=== PATIENT | male | born 1950 | race Caucasian/White ===

== ENCOUNTER 2019-01-10 09:53 | Outpatient (CLI) | payer OTHER, SELFPAY ==
[2019-01-10 11:18] LABS: CREATININE 0.77 mg/dL (0.70-1.30); Cholesterol 178 mg/dL (50-200); Glucose 94 mg/dL (70-100); HDL Cholesterol 65 mg/dL (40-60); LDL CHOLESTEROL 88 mg/dL (<100); Potassium 4.5 mmol/L (3.5-5.1); Triglyceride 69 mg/dL (30-150)
== END 2019-01-10 10:13 ==
PROVIDERS: PCP General Practice; Visit Provider General Practice
DX: Z00.00 Encounter for general adult medical examination without abnormal findings (principal); I10 Essential (primary) hypertension
CPT/HCPCS: 36415; 80061; 82947; 83721; 82565; 84132

== ENCOUNTER 2020-04-18 07:27 | Emergency (ER) | payer OTHER, SELFPAY ==
[2020-04-18 07:30] VITALS: BP 173/101; PULSE 95; TEMP 36.7; O2SAT 97
--- NOTE | 2020-04-18 08:04 | DI.RAD_ITS ---
EXAM: XR ANKLE LT COMPLETE CLINICAL HISTORY: pain TECHNIQUE: 2D digital imaging was performed. COMPARISON: No exams were available for comparison FINDINGS: There is soft tissue swelling beneath the malleoli. No fracture or ankle mortise widening is seen. There is no talar dome defect. Spurring is noted at the Achilles insertion on the calcaneus. IMPRESSION: Soft tissue swelling. No acute abnormality.
--- NOTE | 2020-04-18 08:05 | DI.RAD_ITS ---
EXAM: XR FOOT LT COMPLETE CLINICAL HISTORY: pain. TECHNIQUE: 2D digital imaging was performed. COMPARISON: No exams were available for comparison FINDINGS: BONES: No acute fracture is present. No bony destructive lesion is seen. There is spurring at the Ach illes insertion on the calcaneus. JOINTS: No dislocation present. SOFT TISSUE: Normal. IMPRESSION: Unremarkable radiographs of the left foot. DATA REPOSITORY: RADIATION DOSE DELIVERED:
--- NOTE | 2020-04-18 08:12 | DI.VRAD_ITS ---
PROCEDURE INFORMATION: Exam: XR Left Foot Complete Exam date and time: 04/18/2020 7:54 AM Age: 70 years old Clinical indication: Left; Patient HX: Pain/swelling. Dropped wood on foot TECHNIQUE: Imaging protocol: XR Left foot. Views: 3 or more views. COMPARISON: No relevant prior studies available. FINDINGS: Bones/joints: Normal. Soft tissues: Normal. IMPRESSION: No acute findings. Dictated and Authenticated by: Erasto Patel MD. Ordering:JOSÉ ANTONIO Brennan MD
--- NOTE | 2020-04-18 08:12 | DI.VRAD_ITS ---
PROCEDURE INFORMATION: Exam: XR Left Ankle Exam date and time: 04/18/2020 7:54 AM Age: 70 years old Clinical indication: Left; Patient HX: Pain/dropped wood on foot 1 week ago. Swelling at ankle TECHNIQUE: Imaging protocol: XR Left ankle. Views: 3 or more views. COMPARISON: No relevant prior studies available. FINDINGS: Bones/joints: Normal. Soft tissues: Medial soft tissue swelling. MRI could be performed for further evaluation to assess soft tissue injury IMPRESSION: Medial soft tissue swelling. Dictated and Authenticated by: Erasto Patel MD. Ordering:JOSÉ ANTONIO Brennan MD
--- NOTE | 2020-04-18 08:18 | W.ED.GENAD ---
Discharge Plan Disposition Patient Disposition: HOME Condition: Improving Discharge Details Chief Complaint: Orthopedic Clinical Impression: Acute gout of left foot Primary Care Provider: Jesus Mckinley ED Provider: Nate Delacruz Home Meds and New Rx's Prescriptions: New prednisone 20 mg tablet 40 mg PO DAILY 5 Days Qty: 10 RF: 0 Continued lisinopril 2.5 MG tablet 5 mg PO DAILY RF: 0 Discharge Instructions Instructions: Gout (ED) Additional Instructions: Please take prednisone as prescribed. Please take the colchicine today and tomorrow. May use a small amount of ibuprofen 400 mg twice daily if needed for pain. May also use Tylenol as needed for pain. Return for worsening discomfort, development of a fever, or any other acute concerns. Medical Decision Making 70-year-old male presents from home complaining of days of the left foot pain both at the medial malleolus and left great toe base. Similar to previous episodes of gout. He will note that he had a blunt trauma from dropping a piece of wood on the left foot dorsum in a heavy work shoe. He states that this did seem to get better. Patient is otherwise well. He takes 5 mg lisinopril and historically has had normal renal function. Today's x-rays are unremarkable for bony findings. I do feel this is consistent with gout. I will place him on 2 days of colchicine as well as a small burst of prednisone. He understands follow-up/return precautions. HPI General Mode of arrival: ambulatory. Date/Time Provider Initiated Documentation: 04/18/20 07:30. Limitations to Documentation: no limitations. Information obtained by: patient. History of Present Illness 70 year old M presents to the emergency department with the chief complaint of Left foot pain, described as moderate and similar to prior episodes, Quality is described as dull and constant, and is localized to the left and lower extremity. Patient reports no radiation. Patient started experiencing this day(s) and it has been constant. Rest improves symptom(s), Other factors that worsen symptoms (Weightbearing) . Patient notes denies fever/chills. Patient did receive the following treatments prior to arrival, Aspirin Related Data Home Medications Medication Instructions Recorded Confirmed lisinopril 5 mg PO DAILY 07/15/16 04/18/20 prednisone 40 mg PO DAILY 5 Days #10 tab 04/18/20 Previous Rx's Medication Instructions Recorded prednisone 40 mg PO DAILY 5 Days #10 tab 04/18/20 Allergies Allergy/AdvReac Type Severity Reaction Status Date / Time venom-honey bee Allergy Severe Hives Unverified 04/18/20 07:34 [bee venom (honey bee)] General Stated Complaint: Orthopedic APARNA: 3 Review of Systems Narrative: No fever. Has otherwise been well. [facility] Social History Smoking/Tobacco Use Status: Never Alcohol Intake: current Alcohol Intake frequency: a few times a week Alcohol type: beer Drug use: Never Substance use type: does not use Do you feel safe at home: Yes Do you feel safe in your relationship?: Yes Exam Narrative Exam Narrative: GEN: awake, alert, oriented 3. Pleasant, well groomed, interactive. HEAD: Normocephalic, atraumatic ENT: Mucous membranes moist, oropharynx unremarkable, External ear exam unremarkable EYES: PERRL, EOMI NECK: Full ROM, no SIMON, no menigismus CHEST/RESP: Nontender, clear to auscultation bilateral, no wheeze/rhonchi/rales CARDIOVASCULAR: RRR, no murmur, rub jay. 2+ Rad pulse bilateral ABDOMEN: Soft, nontender, no mass. +Bowel sounds EXT: Full ROM but limited by pain left. Left medial malleoli are and base of great toe erythema and tenderness to touch. Neuro: Grossly normal neurologic exam, conversant, interactive. Psych: Speech fluent, thoughts congruent, affect normal Course Vital Signs Vital signs: Vital Signs Temperature 36.7 C 04/18/20 07:30 Pulse 95 H 04/18/20 07:30 Blood Pressure 173/101 H 04/18/20 07:30 Pulse Oximetry 97 04/18/20 07:30 Temperature 36.7 C 04/18/20 07:30 Temperature Source Temporal Artery Scan 04/18/20 07:30 Pulse 95 H 04/18/20 07:30 Respiratory Effort Non-Labored 04/18/20 07:32 Blood Pressure 173/101 H 04/18/20 07:30 Blood Pressure Position Sitting 04/18/20 07:30 Pulse Oximetry 97 04/18/20 07:30 Oxygen Delivery Method Room Air 04/18/20 07:30 Oxygen Flow Rate 0 04/18/20 07:30 Pain Level 9 04/18/20 07:36
[2020-04-18] MEDS: predniSONE 20 MG TAB 60 MG PO (09:06)
[2020-04-18] MEDS: Colchicine 0.6 MG TAB PO (09:06)
[2020-04-18 09:07] VITALS: BP 149/90; PULSE 64; RESP 18; TEMP 36.7; O2SAT 98
== END 2020-04-18 09:13 | disposition home or self-care (01) ==
PROVIDERS: Emergency Provider Emergency Medicine; PCP General Practice
DX: S99.922A Unspecified injury of left foot, initial encounter (principal); W20.8XXA Other cause of strike by thrown, projected or falling object, initial encounter; M10.9 Gout, unspecified; I10 Essential (primary) hypertension
CPT/HCPCS: 99284; 73610; 73630; 99283; J7512

== ENCOUNTER 2021-02-14 12:54 | Outpatient (REF) | payer OTHER, SELFPAY ==
[2021-02-15 15:42] LABS: COVID-19 RT-PCR UVMMC Result Negative (Negative)
== END 2021-02-14 12:55 | disposition home or self-care (01) ==
LOC: NCHCN 12:54
PROVIDERS: PCP General Practice; Visit Provider Nurse Practitioner Family
DX: Z20.822 Contact with and (suspected) exposure to COVID-19 (principal); R05 Cough
CPT/HCPCS: U0003

== ENCOUNTER 2021-05-03 09:03 | Outpatient (REF) | payer OTHER, SELFPAY ==
[2021-05-03 20:48] LABS: Anion Gap 9.8 mmol/L (3-11); BUN 23 mg/dL (7-18); CO2 24.2 mmol/L (21.0-32.0); CREATININE 0.7 mg/dL (0.70-1.30); Calcium 9.2 mg/dL (8.5-10.1); Chloride 105 mmol/L (98-107); Glucose 97 mg/dL (74-106); Potassium 4.4 mmol/L (3.5-5.1); Sodium 139 mmol/L (136-145)
== END 2021-05-03 09:04 | disposition home or self-care (01) ==
LOC: NCHCN 09:03
PROVIDERS: PCP General Practice; Visit Provider Physician Assistant
DX: I10 Essential (primary) hypertension (principal)
CPT/HCPCS: 80048

== ENCOUNTER 2021-08-02 18:19 | Outpatient (REF) | payer OTHER, SELFPAY ==
[2021-08-02 18:03] LABS: Bilirubin Negative (Negative); Blood Negative (Negative); Clarity Clear (Clear); Glucose Negative (Negative); Ketones Negative (Negative); Leukocyte Esterase Negative (Negative); Nitrite Negative (Negative); Urobilinogen 0.2 EU/dL (Up TO 0.2); pH 5.5 (5-8)
== END 2021-08-02 18:20 | disposition home or self-care (01) ==
LOC: NCHCN 18:19
PROVIDERS: PCP General Practice; Visit Provider Physician Assistant
DX: R35.0 Frequency of micturition (principal)
CPT/HCPCS: 81003

== ENCOUNTER 2021-09-09 12:21 | Outpatient (REF) | payer MEDICARE, SELFPAY ==
[2021-09-09 11:37] LABS: Mononuclear Cells 3 %; Polynuclear Cells 97 %
== END 2021-09-09 12:22 | disposition home or self-care (01) ==
LOC: NCHCN 12:21
PROVIDERS: PCP General Practice; Visit Provider Physician Assistant
DX: M70.22 Olecranon bursitis, left elbow (principal)
CPT/HCPCS: 89051; 87070; 87205

== ENCOUNTER 2023-06-08 09:38 | Outpatient (REF) | payer MEDICARE, SELFPAY ==
[2023-06-08 16:13] LABS: HCT 45.5 % (40.0-50.0); HGB 16.3 g/dL (13.5-17.5); MCH 32.4 pg (27.0-33.0); MCHC 35.8 % (32.0-36.0); MCV 91 fL (80-95); MPV 10.5 fL (8.0-11.0); Platelet Count 235 10^3/uL (130-400); RBC 5.03 10^6/uL (4.36-5.78); RDW 13.1 % (11.8-14.1); RDW-SD 43.1 fL; WBC 4.36 10^3/uL (4.4-10.8)
[2023-06-08 17:22] LABS: ALT 43 U/L (16-63); AST 21 U/L (15-37); Alkaline Phosphatase 83 U/L (46-116); Anion Gap 11.3 mmol/L (3-11); BUN 20 mg/dL (7-18); Bilirubin, Total 0.8 mg/dL (0.2-1.0); CO2 23.7 mmol/L (21.0-32.0); CREATININE 0.7 mg/dL (0.70-1.30); Calcium 9.3 mg/dL (8.5-10.1); Calculated LDL 102 mg/dL (<100); Chloride 103 mmol/L (98-107); Cholesterol 188 mg/dL (<200); Estimated GFR 96.69 (mL/min/1.73m2); Glucose 102 mg/dL (74-106); HDL Cholesterol 56 mg/dL (40-60); Potassium 4.1 mmol/L (3.5-5.1); Sodium 138 mmol/L (136-145); Total Protein 7.1 g/dL (6.4-8.2); Triglyceride 150 mg/dL (<150)
[2023-06-08 17:31] LABS: Uric Acid 9.7 mg/dL (3.5-7.2)
[2023-06-08 22:30] LABS: PSA, Screening 5.5 ng/mL (<=6.5)
== END 2023-06-08 09:39 | disposition home or self-care (01) ==
LOC: NCHCN 09:38
PROVIDERS: PCP General Practice; Visit Provider Physician Assistant
DX: M10.9 Gout, unspecified (principal); I10 Essential (primary) hypertension; Z12.5 Encounter for screening for malignant neoplasm of prostate; R79.89 Other specified abnormal findings of blood chemistry
CPT/HCPCS: 80053; 80061; 84153; 85027; 84550

== ENCOUNTER 2024-06-09 12:20 | Outpatient (REF) | payer MEDICARE, SELFPAY ==
[2024-06-09 16:15] LABS: Anion Gap 10.7 mmol/L (3-11); BUN 14 mg/dL (7-18); CO2 24.3 mmol/L (21.0-32.0); CREATININE 0.8 mg/dL (0.70-1.30); Calcium 9.4 mg/dL (8.5-10.1); Chloride 104 mmol/L (98-107); Estimated GFR 92.29 (mL/min/1.73m2); Glucose 84 mg/dL (74-106); Sodium 139 mmol/L (136-145)
[2024-06-10 19:27] LABS: PSA, Screening 7.9 ng/mL (<=6.5)
== END 2024-06-09 12:21 | disposition home or self-care (01) ==
LOC: NCHCN 12:20
PROVIDERS: PCP General Practice; Visit Provider Physician Assistant
DX: Z12.5 Encounter for screening for malignant neoplasm of prostate (principal)
CPT/HCPCS: 80048; 84153

== ENCOUNTER 2024-10-20 10:30 | Emergency (ER) | payer MEDICARE, SELFPAY ==
[2024-10-20 10:42] VITALS: BP 165/111; PULSE 101; RESP 16; TEMP 36.5; O2SAT 96
[2024-10-20 10:55] VITALS: TEMP 36.5
[2024-10-20 11:48] VITALS: BP 146/96; PULSE 72; RESP 16; O2SAT 98
[2024-10-20] MEDS: Albuterol HFA 8 GM 60 PUFF INH IH (11:49)
[2024-10-20] MEDS: Inhaler, Assist Device 1 EACH MC (11:49)
[2024-10-20 11:59] LABS: Influenza A PCR Negative (Negative); Influenza B PCR Negative (Negative); RSV PCR Negative (Negative)
[2024-10-20 12:02] LABS: COVID-19 PCR Positive (Negative); Source Nasopharynx
--- NOTE | 2024-10-20 12:10 | DI.RAD_ITS ---
Exam(s) XR CHEST 2V PA LATERAL EXAM: XR CHEST 2V PA LATERAL CLINICAL HISTORY: shortness of breath, cough TECHNIQUE: 2D digital imaging was performed of the chest. Two images were obtained. PA and lateral views were obtained. COMPARISON: CR CHEST 2 VIEWS PA,LAT from 08/21/2016 FINDINGS: MEDIASTINUM: Normal. HEART: Normal. PULMONARY VASCULATURE: Normal. LUNGS: Clear. PLEURAL SPACE: No pleural effusion or pneumothorax. BONE:Within normal limits for the patient's age. OTHER FINDINGS:Normal. IMPRESSION: No acute pulmonary findings. DATA REPOSITORY: RADIATION DOSE DELIVERED:
--- NOTE | 2024-10-20 12:38 | W.ED.GENAD ---
Discharge Plan Disposition Patient Disposition: Home Condition: Stable Discharge Details Clinical Impression: COVID-19 Primary Care Provider: Jesus Mckinley ED Provider: Yeny Gilliland Home Meds and New Rx's Prescriptions: New prednisone 20 mg tablet 40 mg PO DAILY Qty: 10 0RF Continued lisinopril 2.5 MG tablet 5 mg PO DAILY allopurinol 100 mg tablet 100 mg PO DAILY Patient Comments: TAKE ONE TABLET BY MOUTH EVERY DAY WHEN FIRST STARTING TAKE INDOMETHACIN TAKE ONE TABLET BY MOUTH THREE TIMES A DAY FOR FIRST 10 DAYS Discharge Instructions Instructions: COVID-19 ED Additional Instructions: Take prednisone as prescribed Use your inhaler 2 puffs every 4-6 hours, increase fluids, may take [id number] cough medicine as needed, humidifier in your room Return with fever, chills, worsening shortness of breath, or should any new concerns arise Discharge Data Discharge Date/Time-TO BE ENTERED AT DEPARTURE: 10/20/24 12:55 HPI General Date/Time Provider Initiated Documentation: 10/20/24 11:14. HPI Narrative: This 74-year-old male presents with cough, shortness of breath, been sick for approximately 10 days after [employer] gathering. Presenting secondary to persistence but not worsening of symptoms. Related Data Home Medications ?Medication ?Instructions ?Recorded ?Confirmed lisinopril 2.5 mg tablet 5 mg PO DAILY 07/15/16 10/20/24 allopurinol 100 mg tablet 100 mg PO DAILY 10/20/24 10/20/24 prednisone 20 mg tablet 40 mg (2 x 20 mg) PO DAILY #10 tabs 10/20/24 Previous Rx's ?Medication ?Instructions ?Recorded prednisone 20 mg tablet 40 mg (2 x 20 mg) PO DAILY #10 tabs 10/20/24 Allergies Allergy/AdvReac Type Severity Reaction Status Date / Time venom-honey bee (bee venom Allergy Severe Hives Unverified 10/20/24 10:39 (honey bee)) General Stated Complaint: RespSymp APARNA: 3 Exam Narrative Exam Narrative: Alert, oriented 74-year-old male in no acute distress, lungs clear to auscultation, no peripheral edema, cardiac rate with a regular Course Vital Signs Vital signs: Vital Signs Temperature 36.5 C 10/20/24 10:42 Pulse 101 H 10/20/24 10:42 Respiratory Rate 16 10/20/24 10:42 Blood Pressure 165/111 H 10/20/24 10:42 Pulse Oximetry 96 10/20/24 10:42 Temperature 36.5 C 10/20/24 10:55 Temperature Source Oral 10/20/24 10:55 Pulse 72 10/20/24 11:48 Respiratory Rate 16 10/20/24 11:48 Respiratory Effort Normal, Non-Labored 10/20/24 10:55 Respiratory Depth Normal 10/20/24 10:55 Blood Pressure 146/96 H 10/20/24 11:48 Blood Pressure Position Standing 10/20/24 10:42 Pulse Oximetry 98 10/20/24 11:48 Oxygen Delivery Method Room Air 10/20/24 11:48 Oxygen Flow Rate 0 10/20/24 11:48 Pain Level 5 10/20/24 10:42 Lab/Test Results Lab/Test Results: Laboratory Tests Range/Units 10/20/24 11:04 COVID-19 Source Nasopharynx SARS-CoV-2 (PCR) (Negative) Positive A Influenza Type A (PCR) (Negative) Negative Influenza Type B (PCR) (Negative) Negative RSV (PCR) (Negative) Negative Medical Decision Making 74-year-old male presenting with upper respiratory symptoms for 10 days, sick with similar presentation. Chest x-ray was ordered secondary to age, patient is in no respiratory distress, will order Fluvid, give albuterol inhaler for cough and prednisone. Patient appears well, feeling improvement after inhaler, chest x-ray per radiology interpretation my review does not show evidence of acute abnormality. Return precautions reviewed and patient expressed understanding Quality:SDOH Health Related Social Needs: No Data to Display PFSH All Active Problems (Updated 10/20/24 @ 12:40 by SUNSHINE Jaffe) COVID-19 (Acute) Hx of colonic polyps (Acute) Social History Smoking/Tobacco Use Status: Never Smoking risk assessment performed?: Yes Alcohol Intake: current Alcohol Intake frequency: a few times a week Alcohol type: beer Drug use: Never Substance use type: does not use Housing: house Do you feel safe at home: Yes Do you feel safe in your relationship?: Yes
== END 2024-10-20 12:55 | disposition home or self-care (01) ==
PROVIDERS: Emergency Provider Physician Assistant; PCP General Practice
DX: U07.1 COVID-19 (principal)
CPT/HCPCS: 87637; 99283; 71046

== ENCOUNTER 2025-02-16 12:58 | Outpatient (REF) | payer MEDICARE, SELFPAY ==
[2025-02-19 11:40] LABS: Free PSA/PSA Ratio 0.15 ratio
== END 2025-02-16 12:59 | disposition home or self-care (01) ==
LOC: NCHCN 12:58
PROVIDERS: PCP General Practice; Visit Provider Physician Assistant
DX: R97.20 Elevated prostate specific antigen [PSA] (principal)
CPT/HCPCS: 84154

== ENCOUNTER 2025-05-26 12:47 | Outpatient (REF) | payer MEDICARE, SELFPAY | END 2025-05-26 12:48 | disposition home or self-care (01) | LOC: NCHCN 12:47 | PROVIDERS: PCP Physician Assistant; Visit Provider Urology | DX: R97.20 Elevated prostate specific antigen [PSA] (principal) | CPT/HCPCS: 84154 ==

== ENCOUNTER 2025-06-08 12:49 | Outpatient (CLI) | payer MEDICARE, SELFPAY ==
[2025-06-08 12:56] LABS: Estimated GFR 95.49 (mL/min/1.73m2)
== END 2025-06-08 12:50 | disposition home or self-care (01) ==
LOC: LBO 12:49
PROVIDERS: PCP Physician Assistant; Visit Provider Urology
DX: Z01.812 Encounter for preprocedural laboratory examination (principal); R97.20 Elevated prostate specific antigen [PSA]
CPT/HCPCS: 36415; 82565